=== PATIENT | male | born 1960 | race African-American/Black ===

== ENCOUNTER 2022-01-09 17:53 | Inpatient (IN) | payer OTHER ==
[2022-01-09 18:17] VITALS: BMI 21.7
[2022-01-09] MEDS ORDERED: ALBUTEROL SO4 2.5/IPRATROPIUM 0.5 INH SOL 3 ML VIAL.NEB. NEB ONE (18:48)
[2022-01-09] MEDS ORDERED: CEFEPIME HCL/D5W 1 GM/50 ML BAG IVPB ONE (19:11)
[2022-01-09] MEDS ORDERED: VANCOMYCIN 1,000 MG in DEXTROSE 5%-WATER - 250 ML IVPB ONE (19:11)
[2022-01-09 19:22] LABS: ARTERIAL BLD GAS O2 SATURATION 93.1 % (95-98); ARTERIAL BLOOD GAS BASE EXCESS 7.3 mmol/L (-2-2); ARTERIAL BLOOD GAS PO2 67.4 mmHg (80-100); ARTERIAL BLOOD GAS pH 7.404 (7.350-7.450)
[2022-01-09 20:24] LABS: CHLORIDE 97 mmol/L (98-107); SODIUM 135 mmol/L (136-145)
[2022-01-09 20:26] LABS: CALCIUM 9.4 mg/dL (8.5-10.1); GLUCOSE,RANDOM 179 mg/dL (74-106)
[2022-01-09 20:27] LABS: BLOOD UREA NITROGEN 29.6 mg/dL (7-18); CO2 34 mmol/L (21-32); MAGNESIUM 2.4 mg/dL (1.8-2.4)
[2022-01-09 20:29] LABS: PHOSPHOROUS 5.4 mg/dL (2.5-4.9); SGPT/ALT 350 U/L (13-61)
[2022-01-09 20:30] LABS: CREATININE 0.5 mg/dL (0.55-1.3); SGOT/AST 203 U/L (15-37)
[2022-01-09 20:31] LABS: BILIRUBIN,TOTAL 0.7 mg/dL (0.2-1); TOT PROT 7.8 g/dl (6.4-8.2)
[2022-01-09 20:36] LABS: LACTIC ACID 2.5 mmol/L (0.4-2.0)
[2022-01-09] MEDS ORDERED: FUROSEMIDE 40 MG/4 ML INJECTABLE VIAL IVPUSH ONE ×2 (20:43→20:46)
[2022-01-09] MEDS ORDERED: dilTIAZem HCL 50 MG/10 ML - 10 ML VIAL IVPUSH ONE ×2 (20:43→21:37)
[2022-01-09] MEDS ORDERED: FUROSEMIDE 40 MG/4 ML INJECTABLE VIAL ONE ×2 (20:48→20:57)
[2022-01-09] MEDS ORDERED: VANCOMYCIN 1 GRAM (PRE-DOCKED) 1,000 MG/250 ML BAG IVPB ONE (20:48)
[2022-01-09] MEDS ORDERED: CEFEPIME 1 GM/100 ML BAG IVPB ONE (20:48)
[2022-01-09] MEDS ORDERED: dilTIAZem HCL 125 MG/25 ML - 25 ML VIAL ONE ×2 (20:58→22:09)
[2022-01-09] MEDS ORDERED: dilTIAZem HCL 25 MG/5 ML - 5 ML VIAL IVPUSH ONE (21:00)
[2022-01-09 21:04] LABS: BASO % 0.1 % (0-2.0); HEMATOCRIT 28.8 % (35.4-49); HEMOGLOBIN 9.1 GM/dL (11.7-16.9); MCH 26.8 pg (25.7-33.7); MCHC 31.7 g/dl (32.0-35.9); MEAN CELL VOLUME 84.6 fl (80-96); MEAN PLT VOLUME 7.7 fl (7.5-11.1); MONO % 5.7 % (3.8-10.2); NEUT % 86.2 % (42.8-82.8); PLATELET COUNT 563 10^3/uL (134-434); RDW 19.3 % (11.9-15.9); WHITE BLOOD COUNT 19.5 K/mm3 (4.0-10.0)
[2022-01-09 21:07] LABS: ALK PHOS 2760 U/L (45-117); ANION GAP 3 MMOL/L (8-16)
[2022-01-09] MEDS ORDERED: DIGOXIN 0.5 MG/2 ML AMPUL IVPUSH ONE (22:21)
[2022-01-09] MEDS ORDERED: SODIUM CHLORIDE 250 ML IV STA (22:51)
[2022-01-09] MEDS ORDERED: DIGOXIN 0.5 MG/2 ML AMPUL ONE (22:55)
[2022-01-10 01:10] LABS: PH,URINE 5.5 (5.0-8.0); URINE APPEARANCE CLEAR; URINE BILIRUBIN NEGATIVE (NEGATIVE); URINE COLOR YELLOW; URINE GLUCOSE (UA) NEGATIVE (NEGATIVE); URINE KETONE NEGATIVE (NEGATIVE); URINE LEUK ESTERASE NEGATIVE (NEGATIVE); URINE NITRITE NEGATIVE (NEGATIVE); URINE PROTEIN NEGATIVE (NEGATIVE); URINE UROBILINOGEN 0.2 mg/dL (0.2-1.0)
[2022-01-10] MEDS ORDERED: ACETAMINOPHEN 1000 MG/100 ML BAG IVPB PRN (03:14)
[2022-01-10] MEDS ORDERED: SENNOSIDES 8.6MG TABLET (FP) PO PRN (04:00)
[2022-01-10] MEDS ORDERED: ARTIFICIAL TEARS (POLYVINYL ALCOHOL) OPTH DROPS OU PRN (04:00)
[2022-01-10] MEDS ORDERED: POLYETHYLENE GLYCOL (HEALTHYLAX) 3350 17 GM PACKET PO PRN (04:00)
[2022-01-10] MEDS ORDERED: ALBUTEROL SO4 2.5/IPRATROPIUM 0.5 INH SOL 3 ML VIAL.NEB. NEB PRN (04:11)
[2022-01-10] MEDS ORDERED: POLYETHYLENE GLYCOL (HEALTHYLAX) 3350 17 GM PACKET GT PRN (04:25)
[2022-01-10] MEDS ORDERED: CEFEPIME 2 GM/100 ML BAG IVPB ONE ×2 (05:07→10:17)
[2022-01-10] MEDS: CEFEPIME 2 GM in DEXTROSE 5%-WATER 2 GM/100 ML BAG IVPB SCH ×3 (05:51→17:42)
[2022-01-10 07:14] LABS: BASO % 0.4 % (0-2.0); EOS % 0.5 % (0-4.5); HEMATOCRIT 28.3 % (35.4-49); LYMPH % 13.1 % (8-40); MCH 26.8 pg (25.7-33.7); MCHC 31.9 g/dl (32.0-35.9); MEAN PLT VOLUME 8.1 fl (7.5-11.1); MONO % 7.8 % (3.8-10.2); NEUT % 78.2 % (42.8-82.8); PLATELET COUNT 530 10^3/uL (134-434); RBC 3.37 M/mm3 (4.00-5.60); RDW 19.4 % (11.9-15.9); WHITE BLOOD COUNT 13.5 K/mm3 (4.0-10.0)
[2022-01-10 07:23] LABS: INR 1.12 (0.83-1.09); PROTHROMBIN TIME (PATIENT) 12.9 SEC (9.7-13.0)
[2022-01-10 07:25] LABS: ACTIVATED PTT 29.6 SECONDS (25.2-36.5)
[2022-01-10 07:41] LABS: CHLORIDE 100 mmol/L (98-107); SODIUM 139 mmol/L (136-145)
[2022-01-10 07:45] LABS: ANION GAP 3 MMOL/L (8-16); CO2 36 mmol/L (21-32)
[2022-01-10 07:46] LABS: BLOOD UREA NITROGEN 24.9 mg/dL (7-18); GLUCOSE,RANDOM 133 mg/dL (74-106)
[2022-01-10 07:47] LABS: CALCIUM 8.9 mg/dL (8.5-10.1)
[2022-01-10 07:48] LABS: SGOT/AST 96 U/L (15-37); SGPT/ALT 276 U/L (13-61)
[2022-01-10 07:49] LABS: CREATININE 0.4 mg/dL (0.55-1.3); PHOSPHOROUS 3.7 mg/dL (2.5-4.9)
[2022-01-10 07:50] LABS: BILIRUBIN,TOTAL 0.7 mg/dL (0.2-1); TOT PROT 6.9 g/dl (6.4-8.2)
[2022-01-10 08:27] LABS: ALK PHOS 2326 U/L (45-117)
[2022-01-10] MEDS ORDERED: VANCOMYCIN/WATER 1250 MG 1,250 MG/250 ML BAG IVPB SCH (09:00)
[2022-01-10] MEDS: DIGOXIN 250 MCG/5 ML LIQUID GT SCH (09:40)
[2022-01-10] MEDS ORDERED: ZINC SULFATE 220 MG CAPSULE (FP) GT SCH (10:00)
[2022-01-10] MEDS ORDERED: THIAMINE HCL 100 MG TABLET (FP) PO SCH (10:00)
[2022-01-10] MEDS ORDERED: ENOXAPARIN NA (PORCINE) 40 MG/0.4 ML DISP.SYRIN SQ SCH (10:00)
[2022-01-10] MEDS ORDERED: MULTIVITAMINS (DAILY MVI) TABLET (FP) PO SCH (10:00)
[2022-01-10] MEDS ORDERED: risperiDONE 0.5 MG TABLET PO SCH (10:00)
[2022-01-10] MEDS ORDERED: VANCOMYCIN/WATER 1,250 MG/250 ML BAG IVPB SCH (10:00)
[2022-01-10] MEDS ORDERED: MIDODRINE HCL 5 MG TABLET PO SCH (10:00)
[2022-01-10] MEDS: METOPROLOL TARTRATE 25 MG TABLET (FP) GT SCH ×2 (10:11→21:16)
[2022-01-10] MEDS ORDERED: risperiDONE 0.5 MG TABLET ONE (10:16)
[2022-01-10] MEDS ORDERED: FOLIC ACID 1 MG TABLET (FP) ONE (10:16)
[2022-01-10] MEDS ORDERED: ZINC SULFATE 220 MG CAPSULE (FP) ONE (10:16)
[2022-01-10] MEDS ORDERED: THIAMINE HCL 100 MG TABLET (FP) ONE (10:16)
[2022-01-10] MEDS: FOLIC ACID 1 MG TABLET (FP) GT SCH (10:31)
[2022-01-10] MEDS: MIDODRINE HCL 5 MG TABLET GT SCH ×3 (10:32→17:42)
[2022-01-10] MEDS: FONDAPARINUX SODIUM 7.5 MG/0.6 ML SYRINGE SQ SCH (10:32)
[2022-01-10] MEDS: risperiDONE 0.5 MG TABLET GT SCH ×2 (10:32→21:16)
[2022-01-10] MEDS: THIAMINE HCL 100 MG TABLET (FP) NR SCH (10:32)
[2022-01-10] MEDS: ZINC SULFATE 220 MG CAPSULE (FP) GT SCH (10:32)
[2022-01-10] MEDS: VANCOMYCIN/WATER FOR INJ (PEG) 1,000 MG/200 ML BAG IVPB SCH (13:57)
[2022-01-10] MEDS: BUDESONIDE/FORMETEROL FUMARATE 80/4.5 mcg INHALER IH SCH ×2 (17:15→22:00)
[2022-01-10] MEDS ORDERED: CEFEPIME HCL 2 GM VIAL (RESTRICTED TO ID) ONE (17:29)
[2022-01-10] MEDS ORDERED: DEXTROSE 5%-WATER 100 ML IVPB ONE (17:29)
[2022-01-10] MEDS ORDERED: CHLORHEXIDINE GLUCONATE 4% CLEANSER FOR DECOLONIZATION TP SCH (22:00)
[2022-01-10] MEDS ORDERED: MUPIROCIN 2% TOPICAL OINTMENT FOR DECOLONIZATION NS SCH (22:00)
[2022-01-11] MEDS ORDERED: CEFEPIME HCL 2 GM VIAL (RESTRICTED TO ID) ONE ×3 (01:22→16:50)
[2022-01-11] MEDS ORDERED: DEXTROSE 5%-WATER 100 ML IVPB ONE ×3 (01:22→16:51)
[2022-01-11] MEDS: CEFEPIME 2 GM in DEXTROSE 5%-WATER 2 GM/100 ML BAG IVPB SCH ×3 (01:27→17:43)
[2022-01-11] MEDS: VANCOMYCIN/WATER FOR INJ (PEG) 1,000 MG/200 ML BAG IVPB SCH ×2 (02:00→13:33)
[2022-01-11] MEDS: ZINC SULFATE 220 MG CAPSULE (FP) GT SCH (09:14)
[2022-01-11] MEDS: MIDODRINE HCL 5 MG TABLET GT SCH ×3 (09:14→17:46)
[2022-01-11] MEDS: risperiDONE 0.5 MG TABLET GT SCH ×2 (09:14→21:50)
[2022-01-11] MEDS: METOPROLOL TARTRATE 25 MG TABLET (FP) GT SCH ×2 (09:14→21:46)
[2022-01-11] MEDS: THIAMINE HCL 100 MG TABLET (FP) NR SCH (09:14)
[2022-01-11] MEDS: FOLIC ACID 1 MG TABLET (FP) GT SCH (09:14)
[2022-01-11] MEDS: DIGOXIN 250 MCG/5 ML LIQUID GT SCH (09:20)
[2022-01-11] MEDS: FONDAPARINUX SODIUM 7.5 MG/0.6 ML SYRINGE SQ SCH (09:21)
[2022-01-11] MEDS: BUDESONIDE/FORMETEROL FUMARATE 80/4.5 mcg INHALER IH SCH ×2 (09:25→21:51)
[2022-01-11] MEDS: ALBUTEROL SO4 2.5/IPRATROPIUM 0.5 INH SOL 3 ML VIAL.NEB. NEB SCH ×3 (11:45→20:25)
[2022-01-11] MEDS: methylPREDNISolone NA SUCC 40 MG/1 ML VIAL IVPUSH SCH ×2 (13:33→17:46)
[2022-01-12] MEDS ORDERED: CEFEPIME HCL 2 GM VIAL (RESTRICTED TO ID) ONE ×3 (02:11→17:14)
[2022-01-12] MEDS ORDERED: DEXTROSE 5%-WATER 100 ML IVPB ONE ×3 (02:11→17:15)
[2022-01-12] MEDS: CEFEPIME 2 GM in DEXTROSE 5%-WATER 2 GM/100 ML BAG IVPB SCH ×3 (02:33→17:23)
[2022-01-12] MEDS: methylPREDNISolone NA SUCC 40 MG/1 ML VIAL IVPUSH SCH ×3 (02:33→17:23)
[2022-01-12] MEDS: VANCOMYCIN/WATER FOR INJ (PEG) 1,000 MG/200 ML BAG IVPB SCH (02:34)
[2022-01-12] MEDS: ALBUTEROL SO4 2.5/IPRATROPIUM 0.5 INH SOL 3 ML VIAL.NEB. NEB SCH ×4 (07:30→21:09)
[2022-01-12 08:19] LABS: BASO % 0.1 % (0-2.0); HEMATOCRIT 28.6 % (35.4-49); HEMOGLOBIN 9.1 GM/dL (11.7-16.9); LYMPH % 9.7 % (8-40); MCH 26.9 pg (25.7-33.7); MCHC 31.9 g/dl (32.0-35.9); MEAN CELL VOLUME 84.3 fl (80-96); MEAN PLT VOLUME 8.3 fl (7.5-11.1); MONO % 1.7 % (3.8-10.2); NEUT % 88.5 % (42.8-82.8); PLATELET COUNT 579 10^3/uL (134-434); RDW 18.8 % (11.9-15.9); WHITE BLOOD COUNT 11.3 K/mm3 (4.0-10.0)
[2022-01-12 08:38] LABS: BLOOD UREA NITROGEN 24.5 mg/dL (7-18); CALCIUM 8.9 mg/dL (8.5-10.1)
[2022-01-12 08:40] LABS: MAGNESIUM 2.1 mg/dL (1.8-2.4)
[2022-01-12 08:41] LABS: CREATININE 0.4 mg/dL (0.55-1.3); PHOSPHOROUS 4.8 mg/dL (2.5-4.9)
[2022-01-12 08:43] LABS: BILIRUBIN,TOTAL 0.9 mg/dL (0.2-1); TOT PROT 6.7 g/dl (6.4-8.2)
[2022-01-12] MEDS: ZINC SULFATE 220 MG CAPSULE (FP) GT SCH (10:25)
[2022-01-12] MEDS: THIAMINE HCL 100 MG TABLET (FP) NR SCH (10:25)
[2022-01-12] MEDS: METOPROLOL TARTRATE 25 MG TABLET (FP) GT SCH ×2 (10:25→21:51)
[2022-01-12] MEDS: risperiDONE 0.5 MG TABLET GT SCH ×2 (10:25→21:52)
[2022-01-12] MEDS: MIDODRINE HCL 5 MG TABLET GT SCH ×3 (10:25→17:31)
[2022-01-12] MEDS: FOLIC ACID 1 MG TABLET (FP) GT SCH (10:25)
[2022-01-12] MEDS: DIGOXIN 250 MCG/5 ML LIQUID GT SCH (10:27)
[2022-01-12] MEDS: FONDAPARINUX SODIUM 7.5 MG/0.6 ML SYRINGE SQ SCH (10:28)
[2022-01-12] MEDS: BUDESONIDE/FORMETEROL FUMARATE 80/4.5 mcg INHALER IH SCH ×2 (10:40→21:52)
[2022-01-13] MEDS ORDERED: CEFEPIME HCL 2 GM VIAL (RESTRICTED TO ID) ONE ×3 (03:13→17:23)
[2022-01-13] MEDS ORDERED: DEXTROSE 5%-WATER 100 ML IVPB ONE ×3 (03:13→17:23)
[2022-01-13] MEDS: CEFEPIME 2 GM in DEXTROSE 5%-WATER 2 GM/100 ML BAG IVPB SCH ×3 (03:30→17:26)
[2022-01-13] MEDS: methylPREDNISolone NA SUCC 40 MG/1 ML VIAL IVPUSH SCH ×3 (03:31→17:26)
[2022-01-13] MEDS: ALBUTEROL SO4 2.5/IPRATROPIUM 0.5 INH SOL 3 ML VIAL.NEB. NEB SCH ×4 (07:36→20:47)
[2022-01-13 08:10] LABS: BASO % 0.3 % (0-2.0); EOS % 0.1 % (0-4.5); HEMATOCRIT 27.7 % (35.4-49); LYMPH % 8.1 % (8-40); MCH 27.5 pg (25.7-33.7); MCHC 32.3 g/dl (32.0-35.9); MEAN PLT VOLUME 8.1 fl (7.5-11.1); MONO % 2.3 % (3.8-10.2); NEUT % 89.2 % (42.8-82.8); PLATELET COUNT 552 10^3/uL (134-434); RBC 3.27 M/mm3 (4.00-5.60); RDW 18.7 % (11.9-15.9); WHITE BLOOD COUNT 11.9 K/mm3 (4.0-10.0)
[2022-01-13 08:25] LABS: ALBUMIN 2.1 g/dl (3.4-5.0); BLOOD UREA NITROGEN 19.8 mg/dL (7-18); CALCIUM 9.3 mg/dL (8.5-10.1)
[2022-01-13 08:28] LABS: CREATININE 0.4 mg/dL (0.55-1.3)
[2022-01-13 08:29] LABS: TOT PROT 6.8 g/dl (6.4-8.2)
[2022-01-13 08:31] LABS: BILIRUBIN,TOTAL 0.6 mg/dL (0.2-1)
[2022-01-13] MEDS: MIDODRINE HCL 5 MG TABLET GT SCH ×3 (11:07→17:26)
[2022-01-13] MEDS: risperiDONE 0.5 MG TABLET GT SCH ×2 (11:08→22:26)
[2022-01-13] MEDS: ZINC SULFATE 220 MG CAPSULE (FP) GT SCH (11:14)
[2022-01-13] MEDS: FOLIC ACID 1 MG TABLET (FP) GT SCH (11:17)
[2022-01-13] MEDS: THIAMINE HCL 100 MG TABLET (FP) NR SCH (11:18)
[2022-01-13] MEDS: BUDESONIDE/FORMETEROL FUMARATE 80/4.5 mcg INHALER IH SCH ×2 (11:19→22:27)
[2022-01-13] MEDS: FONDAPARINUX SODIUM 7.5 MG/0.6 ML SYRINGE SQ SCH (12:16)
[2022-01-13] MEDS: DIGOXIN 250 MCG/5 ML LIQUID GT SCH (12:17)
[2022-01-13] MEDS: METOPROLOL TARTRATE 25 MG TABLET (FP) GT SCH ×2 (12:18→22:26)
[2022-01-14] MEDS ORDERED: CEFEPIME HCL 2 GM VIAL (RESTRICTED TO ID) ONE ×3 (00:52→16:59)
[2022-01-14] MEDS ORDERED: DEXTROSE 5%-WATER 100 ML IVPB ONE ×3 (00:52→16:59)
[2022-01-14] MEDS: methylPREDNISolone NA SUCC 40 MG/1 ML VIAL IVPUSH SCH ×3 (01:23→17:22)
[2022-01-14] MEDS: CEFEPIME 2 GM in DEXTROSE 5%-WATER 2 GM/100 ML BAG IVPB SCH ×3 (01:24→17:00)
[2022-01-14] MEDS: ALBUTEROL SO4 2.5/IPRATROPIUM 0.5 INH SOL 3 ML VIAL.NEB. NEB SCH ×4 (07:34→20:26)
[2022-01-14] MEDS: MIDODRINE HCL 5 MG TABLET GT SCH ×3 (10:03→19:00)
[2022-01-14] MEDS: FONDAPARINUX SODIUM SQ SCH (10:04)
[2022-01-14] MEDS: DIGOXIN 250 MCG/5 ML LIQUID GT SCH (10:05)
[2022-01-14] MEDS: FOLIC ACID 1 MG TABLET (FP) GT SCH (10:05)
[2022-01-14] MEDS: THIAMINE HCL 100 MG TABLET (FP) NR SCH (10:06)
[2022-01-14] MEDS: ZINC SULFATE 220 MG CAPSULE (FP) GT SCH (10:06)
[2022-01-14] MEDS: risperiDONE 0.5 MG TABLET GT SCH ×2 (10:09→22:39)
[2022-01-14] MEDS: BUDESONIDE/FORMETEROL FUMARATE 80/4.5 mcg INHALER IH SCH ×2 (10:09→22:51)
[2022-01-14] MEDS: METOPROLOL TARTRATE 25 MG TABLET (FP) GT SCH ×2 (11:03→22:39)
[2022-01-15] MEDS ORDERED: CEFEPIME HCL 2 GM VIAL (RESTRICTED TO ID) ONE ×3 (01:13→16:54)
[2022-01-15] MEDS ORDERED: DEXTROSE 5%-WATER 100 ML IVPB ONE ×3 (01:14→16:54)
[2022-01-15] MEDS: methylPREDNISolone NA SUCC 40 MG/1 ML VIAL IVPUSH SCH ×3 (01:48→17:20)
[2022-01-15] MEDS: CEFEPIME 2 GM in DEXTROSE 5%-WATER 2 GM/100 ML BAG IVPB SCH ×3 (01:48→17:20)
[2022-01-15] MEDS: ALBUTEROL SO4 2.5/IPRATROPIUM 0.5 INH SOL 3 ML VIAL.NEB. NEB SCH ×4 (07:45→20:18)
[2022-01-15] MEDS: DIGOXIN 250 MCG/5 ML LIQUID GT SCH (10:28)
[2022-01-15] MEDS: FOLIC ACID 1 MG TABLET (FP) GT SCH (10:28)
[2022-01-15] MEDS: METOPROLOL TARTRATE 25 MG TABLET (FP) GT SCH ×2 (10:28→23:04)
[2022-01-15] MEDS: THIAMINE HCL 100 MG TABLET (FP) NR SCH (10:28)
[2022-01-15] MEDS: risperiDONE 0.5 MG TABLET GT SCH ×2 (10:28→23:04)
[2022-01-15] MEDS: ZINC SULFATE 220 MG CAPSULE (FP) GT SCH (10:28)
[2022-01-15] MEDS: MIDODRINE HCL 5 MG TABLET GT SCH ×3 (10:29→17:21)
[2022-01-15] MEDS: BUDESONIDE/FORMETEROL FUMARATE 80/4.5 mcg INHALER IH SCH ×2 (10:30→23:15)
[2022-01-15] MEDS: FONDAPARINUX SODIUM SQ SCH (12:16)
[2022-01-15] MEDS ORDERED: FONDAPARINUX SODIUM 7.5 MG/0.6 ML SYRINGE SQ SCH (19:15)
[2022-01-16 02:11] VITALS: BP 102/70; PULSE 67; TEMP 98.6
== END 2022-01-15 23:45 | disposition short-term general hospital (02) | DRG 871 ==
LOC: JER 17:53 → JERBED 19:38 → J4W 01-10 11:25
PROVIDERS: ADMIT Hospitalist; ATTEND Family Medicine
DX: A41.89 Other specified sepsis (principal); L89.894 Pressure ulcer of other site, stage 4; L89.154 Pressure ulcer of sacral region, stage 4; J96.21 Acute and chronic respiratory failure with hypoxia; J18.9 Pneumonia, unspecified organism; I50.33 Acute on chronic diastolic (congestive) heart failure; I24.8 Other forms of acute ischemic heart disease; I13.0 Hypertensive heart and chronic kidney disease with heart failure and stage 1 through stage 4 chronic kidney disease, or unspecified chronic kidney disease; N18.4 Chronic kidney disease, stage 4 (severe); I48.92 Unspecified atrial flutter; J98.11 Atelectasis; J44.9 Chronic obstructive pulmonary disease, unspecified; I48.91 Unspecified atrial fibrillation; E11.9 Type 2 diabetes mellitus without complications; D50.9 Iron deficiency anemia, unspecified; F20.9 Schizophrenia, unspecified; F31.9 Bipolar disorder, unspecified; R74.8 Abnormal levels of other serum enzymes; D72.829 Elevated white blood cell count, unspecified; I95.9 Hypotension, unspecified; D64.9 Anemia, unspecified; E87.5 Hyperkalemia; E11.51 Type 2 diabetes mellitus with diabetic peripheral angiopathy without gangrene; K80.20 Calculus of gallbladder without cholecystitis without obstruction; N28.1 Cyst of kidney, acquired; I25.10 Atherosclerotic heart disease of native coronary artery without angina pectoris; E11.22 Type 2 diabetes mellitus with diabetic chronic kidney disease; E88.09 Other disorders of plasma-protein metabolism, not elsewhere classified; Z93.1 Gastrostomy status; Z95.2 Presence of prosthetic heart valve; Z93.0 Tracheostomy status; Z89.612 Acquired absence of left leg above knee; Z89.511 Acquired absence of right leg below knee; Z86.73 Personal history of transient ischemic attack (TIA), and cerebral infarction without residual deficits
CPT/HCPCS: 0241U-QW; 31502; 36415; 36600; 71045-TC-FY; 71275-TC; 74230-TC-FY; 76705-TC; 80053; 80162; 81003; 82728; 82803; 82962; 82977; 83516; 83540; 83550; 83605; 83735; 83880; 84080; 84100; 84132; 84443; 84484; 85025; 85379; 85610; 85730; 86038; 86704; 86709; 86803; 87040; 87086; 87340; 87517; 87899; 92611-GN; 93005; 93010; 93306-TC; 94640; 99291; C9803-CS; E0372; Q9967; U0003; U0005

== ENCOUNTER 2022-02-26 22:08 | Emergency (ER) | payer OTHER ==
[2022-02-26 22:28] VITALS: BP 00/00; PULSE 0; TEMP 0; BMI 17.4
== END 2022-02-27 00:44 | disposition expired ==
LOC: JER 22:08
DX: I46.9 Cardiac arrest, cause unspecified (principal)
CPT/HCPCS: 99291